=== PATIENT | female | born 1955 | race Caucasian/White ===

== ENCOUNTER 2022-01-13 17:47 | Emergency (ER) | payer MEDICARE, OTHER, SELFPAY ==
[2022-01-13 18:30] VITALS: BP 122/79; PULSE 93; RESP 16; TEMP 36.8; O2SAT 96; BMI 23.0
--- NOTE | 2022-01-13 20:25 | W.ED.GENADLT ---
HPI - General Adult General: Chief complaint: General Medical Stated complaint: poss UTI Time Seen by Provider: 01/13/22 20:25 History of Present Illness: Ms. 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 At some point, apparently, she had issues with urinary retention and had a chronic Browne indwelling catheter however this was removed and she recently moved to the area. She reports voiding well for the past few months however has had chronic issues with urinary tract infections. She endorses increased urinary frequency and incomplete emptying/inability to void. She denies dysuria. Symptoms have been ongoing for approximately 1 week to a few days. Course has been worsening. Intensity of symptoms is moderate. Denies other signs of systemic illness. No other specific changes in health, exacerbating, or alleviating factors identified. Onset (ago): day(s) Severity: moderate Pain Consistency: intermittent Review of Systems General: Reports: 10 or more systems reviewed and unremarkable except in HPI and below PFSH ED PFSH: Medical History Neurological disease Thyroid cancer Surgical History H/O thyroidectomy History of abdominal surgery Social History Smoking and tobacco status: never smoked Physical Exam Const: COMMON NORMALS: alert GENERAL APPEARANCE: cooperative, well developed and frail appearing HENMT: COMMON NORMALS: normocephalic and atraumatic HEAD & SCALP: normocephalic and atraumatic Eye: COMMON NORMALS: conjunctivae normal CONJUNCTIVA: Yes conjunctivae normal SCLERA: sclerae normal Neck/C-Spine: COMMON NORMALS: supple GENERAL: Yes trachea midline Resp: COMMON NORMALS: normal respiratory effort EFFORT & INSPECTION: Yes able to speak in complete sentences Cardio: COMMON NORMALS: regular rate and regular rhythm RATE: regular rate RHYTHM: regular rhythm GI: COMMON NORMALS: Soft to palpation PALPATION: Yes Soft to palpation and No Tenderness to palpation present (GI) PERCUSSION: normal to percussion Extremity: GENERAL: Yes normal exam except as noted and No edema Neuro: COMMON NORMALS: moves all extremities SENSORIUM/ORIENTATION: Yes alert and No Orientation impaired Psych: COMMON NORMALS: mental status grossly normal and Normal thought process present THOUGHT PROCESS: Normal thought process present Course ED course: - Patient was seen and evaluated by me at bedside -No signs obtained - Initial evaluation notable for exam as above, nontoxic - Labs personally interpreted by me - Labs notable for minimal leukocytosis. Normal metabolic panel. Likely urinary tract infection though squamous epithelial contamination is present. - Patient reports previous antibiotic failure with everything except for sulfa drug which I presume is Bactrim. Will follow sensitivities. - Upon serial reexamination after treatment the patient was similar - Based on patient history, evaluation, and testing as interpreted the most likely cause of the patient's condition is UTI - The results of ED evaluation were discussed with the patient including prescriptions and/or symptomatic cares (if applicable) including appropriate and responsible use, followup plan, and return precautions. The patient verbalized understanding and felt safe for discharge. - Patient discharged in satisfactory condition. Note: Click bubbles or prepopulated stewart in note writing are used for assistance with data collection and billing and are inherently more limited than narrative and other text portions of this note. Please use narrative for additional clinical history and defer to narrative/free test for any case of contradictory information. If information appears in only free text or click bubble it should be considered present or absent as reported. Please contact note press writer for clarifications of clinical information or contradictory information. MDM is a brief summary, contradictory or erroneous seeming information should be clarified and full note should be reviewed. Vital Signs: Vital signs: Vital Signs Temperature 97.9 F 01/13/22 22:19 Pulse Rate 90 01/13/22 23:39 Respiratory Rate 16 01/13/22 23:39 Blood Pressure 148/90 01/13/22 23:39 Pulse Oximetry 96 01/13/22 23:39 MDM - General Adult Medical Decision Making 66-year-old lady with complex past medical history [place] presenting with urinary symptoms. Patient nontoxic on exam. Urinalysis concerning for urinary tract infection. Does have a history of urinary tract infection and reports likely sensitivity to Bactrim which will be prescribed. Satisfactory for outpatient management with strict return precautions. Medical Records I reviewed the patient's medical records. Lab Data I reviewed the patient's lab results. : 01/13/22 22:20 01/13/22 22:20 Laboratory Results WBC 10.5 10^3/uL (4.0-10.0) H 01/13/22 22:20 RBC 5.18 10^6/uL (4.1-5.3) 01/13/22 22:20 Hgb 14.2 g/dL (11.5-15.3) 01/13/22 22:20 Hct 44.1 % (37.0-47.0) 01/13/22 22:20 MCV 85.1 fl (81-99) 01/13/22 22:20 MCH 27.4 pg (28.0-34.0) L 01/13/22 22: MCHC 32.2 g/dL (30.0-36.0) 01/13/22 22: RDW 13.2 % (12.1-15.1) 01/13/22 22:20 Plt Count 297 10^3/cmm (130-400) 01/13/22 22:20 MPV 10.4 fL (7.4-10.4) 01/13/22 22:20 Neut % (Auto) 63.4 % 01/13/22 22:20 Lymph % (Auto) 27.3 % 01/13/22 22:20 Cook % (Auto) 5.5 % 01/13/22 22:20 Eos % (Auto) 3.0 % 01/13/22 22:20 Baso % (Auto) 0.4 % 01/13/22 22:20 Neut # (Auto) 6.66 10^3/uL (1.8-7.7) 01/13/22 22:20 Lymph # (Auto) 2.9 10^3/uL (0.8-4.8) 01/13/22 22:20 Cook # (Auto) 0.6 10^3/uL (0.2-0.9) 01/13/22 22:20 Eos # (Auto) 0.3 10^3/uL (0.0-0.8) 01/13/22 22:20 Baso # (Auto) 0.0 10^3/uL (0.0-0.1) 01/13/22 22:20 Nucleated RBC % (auto) 0 % 01/13/22 22:20 Nucleated RBCs # 0.0 /100WBC 01/13/22 22:20 Sodium 137 mmol/L (136-145) 01/13/22 22:20 Potassium 3.8 mmol/L (3.5-5.1) 01/13/22 22:20 Chloride 98 mmol/L (98-107) 01/13/22 22:20 Carbon Dioxide 28 mmol/L (22-29) 01/13/22 22:20 Anion Gap 14.8 (5-19) 01/13/22 22:20 BUN 16 mg/dL (8-23) 01/13/22 22:20 Creatinine 0.6 mg/dL (0.5-0.9) 01/13/22 22:20 GFR Calculation 100.3 mL/min (90-130) 01/13/22 22:20 Glucose 98 mg/dL (65-115) 01/13/22 22:20 Calculated Osmolality 285 mOsm/kg (285-295) 01/13/22 22:20 Lactic Acid 1.2 mmol/L (0.5-2.2) 01/13/22 22:20 Calcium 9.8 mg/dL (8.5-10.5) 01/13/22 22:20 Total Bilirubin 0.3 mg/dL (0.15-1.2) 01/13/22 22:20 AST 12 U/L (0-32) 01/13/22 22:20 ALT 13 U/L (0-33) 01/13/22 22:20 Alkaline Phosphatase 94 IU/L (35-105) 01/13/22 22:20 Total Protein 7.3 g/dL (6.6-8.7) 01/13/22 22:20 Albumin 5.0 g/dL (3.5-5.2) 01/13/22 22:20 Globulin 2.3 g/dL (1.3-4.6) 01/13/22 22:20 Urine Color Yellow (Yellow) 01/13/22 22:20 Urine Appearance Sl cloudy (CLEAR) A 01/13/22 22:20 Urine pH 5 (5-7) 01/13/22 22:20 Ur Specific [place] 1.020 (1.005-1.030) 04/08/22 22:20 Urine Protein Neg (Negative) 01/13/22 22:20 Urine Glucose (UA) Norm (Normal) 01/13/22 22:20 Urine Ketones 1+ (Negative) H 01/13/22 22:20 Urine Blood 2+ (Negative) H 01/13/22 22:20 Urine Nitrate Negative (Negative) 01/13/22 22:20 Urine Bilirubin Neg (Negative) 01/13/22 22:20 Urine Urobilinogen Norm mg/dL (Negative) 01/13/22 22:20 Ur Leukocyte Esterase 2+ (Negative) H 01/13/22 22:20 Urine RBC 10-15 /hpf (0-2) H 01/13/22 22:20 Urine WBC >100 /hpf (0-5) H 01/13/22 22:20 Ur Squamous Epith Cells 5-10 /hpf (0-5) H 01/13/22 22:20 Amorphous Sediment Not Reportable 01/13/22 22:20 Urine Bacteria 4+ /hpf (NONE) H 01/13/22 22:20 Discharge Plan Discharge Patient Disposition: Home Clinical Impression: Acute UTI Condition: Stable Prescriptions: New Bactrim DS 800-160 mg tablet 1 tab PO BID 5 Days Qty: 10 0RF No Action Calcium 500 500 mg calcium (1,250 mg) Tablet 500 mg PO DAILY 0RF Synthroid 50 mcg tablet 50 mcg PO .COMP 0RF Rx Instructions: TAKE 1 & 1/2 (one & ONE-HALF) TABLETS BY MOUTH ONCE DAILY EXCEPT ON SUNDAY TAKE 2 TABLETS AND ON SUNDAY TAKE 1 TABLET sertraline 25 mg tablet 25 mg PO BEDTIME 0RF magnesium 30 mg Tablet 30 mg PO DAILY 0RF calcitriol 0.25 mcg Capsule 0.25 mcg PO DAILY 0RF vitamin [id number] acid 0.5-1 mg Tablet 1 tab PO DAILY 0RF Discharge Orders: Discharge ED (Routine); Ordered 01/13/22 Ordered By: Blayne Cee Discharge Diet: Usual diet Discharge Activity: Increase activity as tolerated Patient Instructions: Sulfamethoxazole/Trimethoprim (By mouth) (Bactrim, Bactrim DS,..., Urinary Tract Infection in Women (ED) Activity Restrictions/Additional Instructions: Thank you for visiting the emergency department. You were seen and evaluated for urinary symptoms. You most likely have a urinary tract infection which will be treated with antibiotics. This will be sent for culture and antibiotic sensitivities. Please follow-up with your primary care provider. Please attend your appointment for neurology. I will message case management for follow-up with urology. Please return to the emergency department for worsening symptoms or anything else that you are concerned about and feel needs emergency department evaluation. Coding Level of Care Code ED Alterations Workroom Clerk for Luz Cornejo
[2022-01-13 22:19] VITALS: BP 146/92; PULSE 92; RESP 14; TEMP 36.6; O2SAT 94
[2022-01-13 22:26] LABS: Basophils % 0.4 %; Eosinophils # 0.3 10^3/uL (0.0-0.8); Hematocrit 44.1 % (37.0-47.0); Hemoglobin 14.2 g/dL (11.5-15.3); Lymphocytes # 2.9 10^3/uL (0.8-4.8); Lymphocytes % 27.3 %; Mean Corpuscular HGB Conc 32.2 g/dL (30.0-36.0); Mean Corpuscular Hemoglobin 27.4 pg (28.0-34.0); Mean Corpuscular Volume 85.1 fl (81-99); Mean Platelet Volume 10.4 fL (7.4-10.4); Monocytes # 0.6 10^3/uL (0.2-0.9); Monocytes % 5.5 %; Neutrophils # 6.66 10^3/uL (1.8-7.7); Neutrophils % 63.4 %; Nucleated Red Blood Cells % 0 %; Platelet Count 297 10^3/cmm (130-400); Red Blood Count 5.18 10^6/uL (4.1-5.3); Red Cell Distribution Width 13.2 % (12.1-15.1); White Blood Count 10.5 10^3/uL (4.0-10.0)
[2022-01-13 22:30] VITALS: PULSE 88; O2SAT 95
[2022-01-13 22:42] LABS: Lactic Sepsis W/Reflex 1.2 mmol/L (0.5-2.2)
[2022-01-13 22:43] LABS: Add Urine Microscopic? YES; Bilirubin Urine Neg (Negative); Blood Urine 2+ (Negative); Glucose Urine UA Norm (Normal); Ketones Urine 1+ (Negative); Leukocyte Esterase Urine 2+ (Negative); Nitrate Urine Negative (Negative); Protein Urine Neg (Negative); Urine Color Yellow (Yellow); Urobilinogen Urine Norm (Negative); pH Urine 5 (5-7)
[2022-01-13 22:49] LABS: Add Urine Culture? Yes; Bacteria Urine 4+ /hpf; WBC Urine >100 /hpf (0-5)
[2022-01-13 22:50] LABS: Alanine Aminotransferase 13 U/L (0-33); Alkaline Phosphatase 94 IU/L (35-105); Anion Gap 14.8 (5-19); Aspartate Amino Transferase 12 U/L (0-32); Blood Urea Nitrogen 16 mg/dL (8-23); Calcium 9.8 mg/dL (8.5-10.5); Carbon Dioxide 28 mmol/L (22-29); Chloride 98 mmol/L (98-107); Globulin 2.3 g/dL (1.3-4.6); Glomerular Filtration Rate 100.3 mL/min (90-130); Glucose 98 mg/dL (65-115); Osmolality Calculated 285 mOsm/kg (285-295); Potassium 3.8 mmol/L (3.5-5.1); Sodium 137 mmol/L (136-145); Total Bilirubin 0.3 mg/dL (0.15-1.2); Total Protein 7.3 g/dL (6.6-8.7)
[2022-01-13 23:00] VITALS: BP 147/95; PULSE 89; RESP 18; O2SAT 96
[2022-01-13] MEDS: sulfamethoxazole-trimeth DS 160-800 mg Tablet 1 TAB PO (23:26)
[2022-01-13 23:39] VITALS: BP 148/90; PULSE 90; RESP 16; O2SAT 96
--- NOTE | 2022-01-16 11:26 | DCPLANNER ---
Addendum entered by Evelina Sheldon 01/25/22 14:49: patients appointment was cancelled Addendum entered by Evelina Sheldon 01/17/22 13:47: Patient has a follow up appointment scheduled for Tuesday, February 15, 2022 at 2:[address] Crenshaw. Clinic will call patient with appointment information. Original Note: manager digital had message to schedule a follow up appointment for patient with Dr. Crenshaw, urology. manager digital sent patients information to the front staff at the urology clinic for review. Patients information will be printed and reviewed. Clinic will call patient with appointment information.
== END 2022-01-13 23:40 | disposition home or self-care (01) ==
PROVIDERS: Emergency Medicine; Emergency Provider Emergency Medicine
DX: N39.0 Urinary tract infection, site not specified (principal)
CPT/HCPCS: 80053; 81001; 83605; 85025; 87077; 87086; 87186; 99283